=== PATIENT | male | born 1980 | race Caucasian/White ===

== ENCOUNTER 2018-06-16 17:14 | Emergency (ER) | payer BC ==
[~2018-06-16] VITALS: Ht 185.4 cm; Wt 87.7 kg
[2018-06-16] MEDS ORDERED: AMOXICILLIN875 MG PO (17:56)
[2018-06-16 18:03] VITALS: BP 128/81
== END 2018-06-16 18:03 | disposition home or self-care (01) | DRG 153 ==
LOC: ED 17:14
DX: J02.9 Acute pharyngitis, unspecified (principal)

== ENCOUNTER 2020-01-17 23:27 | Emergency (ER) | payer BC ==
[~2020-01-17 23:27] MED LIST: AMOXICILLIN875 MG PO
[2020-01-18 00:44] LABS: HEMATOCRIT 40.8 % (39.0-50.0); HEMOGLOBIN 13.4 g/dl (14.0-18.0); IMMATURE GRANULOCYTES 0.4 % (0.0-5.0); MEAN CELL VOLUME 81.3 fL CALC (80.0-100.0); MEAN CORPUSCULAR HGB 26.7 pG CALC (26.0-32.0); MEAN CORPUSCULAR HGB CONC 32.8 g/dL CAL (32.0-36.0); NEUT# 10.98 thou/uL (1.82-7.42); RED BLOOD COUNT 5.02 mill/uL (4.70-6.10); RED CELL DISTRI WIDTH 13.6 % (11.5-15.5)
[2020-01-18 00:58] LABS: ALKALINE PHOSPHATASE 125 u/l (38-126); AMYLASE 82 u/l (30-110); ANION GAP 14 (6-22 (CALC)); BILIRUBIN, TOTAL 0.6 mg/dL (0.0-1.4); BUN 15 mg/dL (9-20); BUN/CREATININE RATIO 15 (12-20 (CALC)); CARBON DIOXIDE 21 mmol/l (22-30); CHLORIDE 107 mmol/l (95-108); GFR > 60 ML/MIN (>=60 (CALC)); GFR FOR AFR.AMER. > 60 ML/MIN (>=60 (CALC)); LIPASE 105 u/l (23-300); POTASSIUM 3.7 mmol/l (3.5-5.1); SGOT/AST 20 u/l (17-59); SODIUM 138 mmol/l (137-146); TOTAL PROTEIN 7.6 g/dL (6.3-8.2)
[2020-01-18 01:18] LABS: URINE BILIRUBIN - DIPSTICK NEGATIVE (NEGATIVE); URINE BLOOD DIPSTICK SMALL (NEGATIVE); URINE COLOR YELLOW; URINE GLUCOSE - DIPSTICK NEGATIVE (NEGATIVE); URINE KETONE NEGATIVE (NEGATIVE); URINE NITRITE - DIPSTICK NEGATIVE (Negative); URINE PH 6.5 (4.5-8.0); URINE PROTEIN - DIPSTICK TRACE mg/dL (NEG-TRACE); URINE UROBILINOGEN - DIPSTICK 0.2 E.U./dL (0.2)
[2020-01-18 01:27] LABS: URINE LEUK ESTERASE NEGATIVE (NEGATIVE)
[2020-01-18 01:29] LABS: URINE BACTERIA FEW hpf; URINE EPITHELIAL CELLS FEW EPI/hpf (0-FEW); URINE MUCUS FEW hpf (NONE-FEW)
[2020-01-18] MEDS ORDERED: TAMSULOSIN0.4 MG PO (02:51)
[2020-01-18] MEDS ORDERED: HYDROCO/APAP1 TA9 PO (02:51)
[2020-01-18] MEDS ORDERED: ZOFRAN4 M1 PO (02:51)
[2020-01-18] MEDS ORDERED: CIPROFLOXACN500 MG PO (02:51)
[2020-01-18] MEDS ORDERED: TORADOL PO (02:51)
[2020-01-18 03:15] VITALS: BP 128/66
== END 2020-01-18 03:22 | disposition home or self-care (01) | DRG 694 ==
LOC: ED 23:27
DX: N13.2 Hydronephrosis with renal and ureteral calculous obstruction (principal); Z90.49 Acquired absence of other specified parts of digestive tract

== ENCOUNTER 2021-08-20 14:24 | Emergency (ER) | payer BC ==
[~2021-08-20] VITALS: Ht 185.4 cm; Wt 100.0 kg
[~2021-08-20 14:24] MED LIST changes: +CIPROFLOXACN500 MG PO; +HYDROCO/APAP1 TA9 PO; +TAMSULOSIN0.4 MG PO; +TORADOL PO; +ZOFRAN4 M1 PO
[2021-08-20 16:25] VITALS: BP 133/66
[2021-08-20] MEDS ORDERED: FLONASE AL50 MCG/ACT (17:06)
== END 2021-08-20 17:50 | disposition home or self-care (01) | DRG 153 ==
LOC: ED 14:24
DX: J06.9 Acute upper respiratory infection, unspecified (principal); Z20.822 Contact with and (suspected) exposure to COVID-19

== ENCOUNTER 2024-09-23 22:02 | Emergency (ER) | payer BC ==
[~2024-09-23] VITALS: Ht 185.4 cm; Wt 952.0 kg
[~2024-09-23 22:02] MED LIST changes: +FLONASE AL50 MCG/ACT
[2024-09-23] MEDS ORDERED: SODIUM CHLORIDE 0.9% 1,000 ML IV ONE (22:20)
[2024-09-23] MEDS ORDERED: KETOROLAC TROMETHAMINE 30 MG/ML SDV IV ONE (22:20)
[2024-09-23 22:31] VITALS: BP 139/81
[2024-09-23 22:36] LABS: BASO% 0.6 % (0-3); EOS% 3.8 % (0-8); HEMATOCRIT 43.9 % (39.0-50.0); HEMOGLOBIN 14.4 g/dl (14.0-18.0); IMMATURE GRANULOCYTES 0.2 % (0.0-5.0); MEAN CELL VOLUME 86.1 fL CALC (80.0-100.0); MEAN CORPUSCULAR HGB 28.2 pG CALC (26.0-32.0); MEAN CORPUSCULAR HGB CONC 32.8 g/dL CAL (32.0-36.0); MONO% 9.5 % (2-13); NEUT# 9.18 thou/uL (1.82-7.42); NEUT% 70.9 % (42-76); RED BLOOD COUNT 5.1 mill/uL (4.70-6.10); RED CELL DISTRI WIDTH 13.3 % (11.5-15.5)
[2024-09-23 22:44] LABS: CREATININE 1.4 mg/dL (0.7-1.3); POTASSIUM 4.4 mmol/l (3.5-5.1)
[2024-09-23 22:45] VITALS: BP 133/83
[2024-09-23 23:00] VITALS: BP 134/82
[2024-09-23 23:15] VITALS: BP 133/78
[2024-09-23 23:58] LABS: URINE BILIRUBIN - DIPSTICK Negative (NEGATIVE); URINE BLOOD DIPSTICK Moderate (NEGATIVE); URINE GLUCOSE - DIPSTICK Negative (NEGATIVE); URINE KETONE Negative (NEGATIVE); URINE NITRITE - DIPSTICK Negative (Negative); URINE PROTEIN - DIPSTICK Negative (NEG-TRACE); URINE UROBILINOGEN - DIPSTICK 0.2 E.U./dL (0.2)
[2024-09-24 00:01] LABS: URINE COLOR Yellow; URINE LEUK ESTERASE Negative (NEGATIVE); URINE RBC 50-100 RBC/hpf (0-5)
[2024-09-24 00:02] LABS: URINE BACTERIA MODERATE hpf; URINE EPITHELIAL CELLS FEW EPI/hpf (0-FEW); URINE MUCUS MODERATE hpf (NONE-FEW)
[2024-09-24] MEDS ORDERED: TAMSULOSIN0.4 MG PO (00:27)
[2024-09-24] MEDS ORDERED: TORADOL PO (00:27)
[2024-09-24 00:40] VITALS: BP 133/78
== END 2024-09-24 00:45 | disposition home or self-care (01) | DRG 694 ==
LOC: ED 22:02
PROVIDERS: Family Medicine
DX: N13.2 Hydronephrosis with renal and ureteral calculous obstruction (principal); Z87.442 Personal history of urinary calculi